=== PATIENT | male | born 1990 | race Hispanic/Latino ===

== ENCOUNTER 2017-04-22 23:32 | Emergency (ER) | payer OTHER ==
[2017-04-22 23:35] VITALS: BMI 29.4
--- NOTE | 2017-04-23 00:05 | ED PDOC ---
Arrival/HPI - General Chief Complaint: Weakness/Neurological Deficit Time Seen by Provider: 04/22/17 23:57 - History of Present Illness Narrative History of Present Illness (Text): 04/23/17 00:15 27yo male presents with 1 day duration of R. sided facial droop. pt states he woke up with these symptoms, which were preceded by R. ear pain the evening prior. States ear pain resolved. Pt also states he noted decreased in taste. States this has never happened before. States he is able to close his R. eye, but not as tight as L. States he has no PEDRO, denies rashes, denies any other complaints or neuro deficits. No relieving or exacerbating factors. Past Medical History - Provider Review Nursing Documentation Reviewed: Yes - Infectious Disease Hx of Infectious Diseases: None - Gastrointestinal Other/Comment: IBS - Psychiatric Hx Substance Use: Yes Other/Comment: ADHD - Surgical History Other/Comment: nose surgery - Anesthesia Hx Anesthesia: Yes Hx Anesthesia Reactions: No Hx Malignant Hyperthermia: No Family/Social History Family/Social History: Unknown Family HX Smoking Status: Never Smoked Hx Alcohol Use: Yes Frequency of alcohol use: Socially Hx Substance Use: Yes Substance used: marijuana Allergies/Home Meds Allergies/Adverse Reactions: Allergies lactose Allergy (Verified 04/22/17 23:36) NAUSEA Sulfa (Sulfonamide Antibiotics) Allergy (Verified 04/22/17 23:36) RASH Physical Exam - Physical Exam Narrative Physical Exam (Text): - Review of Systems Constitutional: Normal. absent: Fatigue, Weight Change, Fevers Eyes: weakness when closing right eye ENT: denies sore throat, denies tristhmus Respiratory: Normal. absent: SOB, Cough, Sputum Cardiovascular: absent: Chest Pain, Palpitations, Syncope Gastrointestinal: Normal. absent: Abdominal Pain, Diarrhea, Nausea, Vomiting Genitourinary: Normal. absent: Dysuria, Frequency, Hematuria Musculoskeletal: Normal. absent: Arthralgias, Back Pain, Neck Pain Skin: no rashes, no erythema Neurological: facial droop Endocrine: Normal Hemo/Lymphatic: Normal Psychiatric: No suicidal or homicidal ideations Physical exam Patient appears age appropriate in no distress, speaking full sentences without difficulty - Systems Exam Head: Present: Atraumatic, Normocephalic Pupils: Present: PERRL Extroacular Muscles: Present: EOMI Conjunctiva: Present: Normal Mouth: Present: Moist Mucous Membranes Neck: Present: Normal Range of Motion. No: MIDLINE TENDERNESS, Paraspinal Tenderness Respiratory/Chest: Present: Clear to Auscultation, Good Air Exchange. No: Respiratory Distress, Accessory Muscle Use, Tachypneic Cardiovascular: Present: Regular Rate and Rhythm, Normal S1, S2, Peripheal Pulses Present. No: Murmurs Abdomen: Present: Normal Bowel Sounds. No: Tenderness, Distention, Peritoneal Signs, Rebound, Guarding Back: Present: Normal Inspection. No: Midline Tenderness, Paraspinal Tenderness Upper Extremity: Present: Normal Inspection. No: Cyanosis, Edema Lower Extremity: Present: Normal Inspection. No: Edema Neurological: Present: GCS=15, Speech Normal. R. sided facial droop, involving the forehead. R. eye almost fully closes with a small open slit. Does not appear erythematous. No other focal neurological deficits. Skin: Present: Warm, Dry, Normal Color. No: Rashes Lymphatic: Present: OX3, NI, NC Psychiatric: Present: Alert, Oriented x 3, Normal Insight, Normal Concentration Medical Decision Making ED Course and Treatment: 04/23/17 00:24 27yo male with R. sided facial droop, R. forehead involvement. Based on hx and physical, c/w Riley pt instructed about medication administration and application of artificial tears and eye ointment pt states he will go to 24hr pharmacy now instructed to f/u with a neurologist in 1-2 days no eye abnormality on examination Pt states he understands to return to the ER right away for new or worsening symptoms or for inability to f/u with PMD or specialist as instructed. Patient states that he fully agrees with and understands discharge instructions. States that he agrees with the plan and disposition. Verbalized and repeated discharge instructions and plan. I have given the patient opportunity to ask any additional questions. Disposition/Present on Arrival - Present on Arrival Any Indicators Present on Arrival: No History of DVT/PE: No History of Uncontrolled Diabetes: No Urinary Catheter: No History of Decub. Ulcer: No History Surgical Site Infection Following: None - Disposition Have Diagnosis and Disposition been Completed?: Yes Diagnosis: Bush's palsy Disposition: HOME/ ROUTINE Disposition Time: 23:58 Patient Plan: Discharge Condition: GOOD Discharge Instructions (ExitCare): Bush Palsy (ED) Additional Instructions: PLEASE RETURN TO THE EMERGENCY DEPARTMENT FOR NEW OR WORSENING SYMPTOMS. RETURN RIGHT AWAY IF YOU CANNOT FOLLOW UP WITH YOUR PRIMARY CARE DOCTOR, CLINIC, OR SPECIALIST IN 1-2 DAYS. PLEASE OBTAIN ARTIFICIAL TEARS FROM PHARMACY AND PLACE 2 DROPS INTO R. EYE EVERY 2 HOURS WHILE AWAKE (OR PER PHARMACY INSTRUCTIONS) Prescriptions: Erythromycin 0.5% [Erythromycin] 1 applic OD QID #1 tube predniSONE [predniSONE Tab] 60 mg PO DAILY #21 tab Valacyclovir HCl [Valacyclovir] 1,000 mg PO TID #42 tablet Referrals: Kip Wong MD [Staff Provider] - Follow up with primary Forms: WORK NOTE
[2017-04-23 00:18] VITALS: BP 118/74; PULSE 84; RESP 19; TEMP 98.6; O2SAT 100
== END 2017-04-23 00:16 | disposition home or self-care (01) ==
LOC: ED 23:32
DX: G51.0 Bell's palsy (principal)